=== PATIENT | female | born 1940 | race American Indian/Alaskan Native ===

== ENCOUNTER 2016-09-24 11:04 | Outpatient (CLI) | payer MEDICARE ==
--- NOTE | 2016-09-24 12:59 | Mammography Report ---
BILATERAL MAMMOGRAM: FINDINGS: The breasts are almost entirely fat (<25% glandular). No mass, distortion, suspicious calcification, or skin change is seen. No significant changes compared to prior study in June 2014. CAD was utilized. IMPRESSION: Negative mammogram. There is no mammographic evidence of malignancy. RECOMMENDATION: Follow-up per ACS guidelines. BI-RADS CATEGORY: 1 = Negative ACR BI-RADS MAMMOGRAPHIC CODES: 0 = Needs additional imaging evaluation; 1 = Negative; 2 = Benign; 3 = Probably benign; 4 = Suspicious; 5 = Malignant; 6 = Known biopsy-proven malignancy COMMENT: 1. Dense breast tissue, i.e., adenosis, fibrocystic changes, etc., may obscure an underlying neoplasm. 2. Approximately 10% of cancers are not detected with mammography. 3. A negative mammography report should not delay biopsy if a clinically suspicious mass is present. COMMENT: Patient follow-up letters are generated in [employer].
== END 2016-09-24 11:05 | disposition home or self-care (01) ==
LOC: MAMMO 11:04
PROVIDERS: ATTEND Internal Medicine
DX: Z12.31 Encounter for screening mammogram for malignant neoplasm of breast (principal)
CPT/HCPCS: 77067; G0202

== ENCOUNTER 2018-11-12 16:27 | Emergency (ER) | payer MEDICARE ==
--- NOTE | 2018-11-12 16:37 | Emergency Department Report ---
Blank Doc - Documentation Documentation: This is a 78-year-old female that presents with lower back pain. Denies any t rauma or urinary symptoms. This initial assessment/diagnostic orders/clinical plan/treatment(s) is/are subject to change based on patient's health status, clinical progression and re- assessment by fellow clinical providers in the ED. Further treatment and workup at subsequent clinical providers discretion. Patient/guardians urged not to elope from the ED as their condition may be serious if not clinically assessed and managed. Initial orders include: 1- Patient sent to [facility] for further evaluation and treatment
[2018-11-12] MEDS ORDERED: MORPHINE IM ONE (19:08)
[2018-11-12] MEDS ORDERED: ZOFRAN ODT PO ONE (19:08)
--- NOTE | 2018-11-12 19:31 | Emergency Department Report ---
HPI - General Chief Complaint: Back Pain/Injury Time Seen by Provider: 11/12/18 16:36 - HPI HPI: Room 34 The patient is a 78-year-old female presenting with a chief complaint of low back pain radiating to the left lobectomy. Patient states he's had pain from her lower back radiating to the left lower extremity past her knee for the past 4 days. He states there is no history of trauma or fever. Patient denies any previous episodes of same. Patient states the pain increases with weightbearing or movement. Patient denies abdominal pain. Patient currently gets her pain score of 15/10." Location: [See above] Duration: [See above] Quality: [See above] Severity: [See above] Modifying factors: [see above] Context: [see above] Mode of transportation: [not driving] ED Past Medical Hx - Past Medical History Additional medical history: Hypercholesterolemia - Surgical History Past Surgical History?: No - Family History Family history: no significant - Social History Smoking Status: Former Smoker (none 20 years) Substance Use Type: None - Medications Home Medications: Home Medications Medication Instructions Recorded Confirmed Last Taken Type Cyclobenzaprine [Flexeril] 10 mg PO TID PRN #14 tablet 11/12/18 Unknown Rx HYDROcodone/APAP 5-325 [[place] 1 - 2 each PO Q6HR PRN #20 tablet 11/12/18 Unknown Rx 5/325] Ibuprofen [Motrin 800 MG tab] 800 mg PO Q8HR PRN #20 tablet 11/12/18 Unknown Rx ED Review of Systems ROS: Stated complaint: BACK PAIN Other details as noted in HPI Constitutional: denies: fever Eyes: denies: eye pain ENT: denies: throat pain Respiratory: no symptoms reported Cardiovascular: denies: chest pain Endocrine: no symptoms reported Gastrointestinal: denies: abdominal pain Genitourinary: denies: dysuria Musculoskeletal: back pain Neurological: denies: headache Physical Exam - Physical Exam Vital Signs: Vital Signs 11/12/18 16:35 Temperature 98.3 F Pulse Rate 89 Respiratory 20 Rate Blood Pressure 134/77 O2 Sat by Pulse 98 Oximetry Physical Exam: GENERAL: The patient is well-developed well-nourished female standing in room bent over chair. To be in moderate discomfort HEENT: Normocephalic. Atraumatic. Extraocular motions are intact. Patient has moist mucous membranes. NECK: Supple. Trachea midline CHEST/LUNGS: Clear to auscultation. There is no respiratory distress noted. HEART/CARDIOVASCULAR: Regular. There is no tachycardia. There is no gallop rub or murmur.2+ left DP ABDOMEN: Abdomen is soft, nontender. Patient has normal bowel sounds. There is no abdominal distention. There are no abdominal bruits. No pulsatile abdominal masses palpated SKIN: There is no rash. There is no edema. There is no diaphoresis. NEURO: The patient is awake, alert, and oriented. The patient is cooperative. The patient has no focal neurologic deficits. The patient has normal speech and gait. MUSCULOSKELETAL: There is mild discomfort to palpation at the lower lumbar spine. There is no evidence of acute injury. Positive straight leg raise on the left ED Course Vital Signs 11/12/18 16:35 Temperature 98.3 F Pulse Rate 89 Respiratory 20 Rate Blood Pressure 134/77 O2 Sat by Pulse 98 Oximetry ED Medical Decision Making - Radiology Data Radiology results: report reviewed (lumbar spine x-ray), image reviewed (lumbar spine x-ray) interpreted by me: Lumbar spine x-ray-no acute fracture [facility] [address] [place] [address] XRay Report Signed Patient: HAILEY ELIZABETH MR#: [id number] : 1940 Acct:[id number] Age/Sex: 78 / F ADM Date: 11/12/18 Loc: ED Attending Dr: Ordering Physician: SUSY MCCLOUD MD Date of Service: 11/12/18 Procedure(s): XR spine lumbosacral 2-3V Accession Number(s): [id number] cc: SUSY MCCLOUD MD Fluoro Time In Minutes: LUMBAR SPINE 3 VIEWS INDICATION: MAIN: pain radiating down left lower extremity starting on 11/09/18. COMPARISON: No relevant prior imaging study available. FINDINGS: Lumbar vertebral body height is maintained. There is mild mid to lower lumbar facet and discogenic degenerative change. There is minimal anterolisthesis of L3 on L4, alignment is otherwise unremarkable. 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 No acute fracture is seen. IMPRESSION: 1. No acute findings. Signer Name: Abdullahi Bishop MD Signed: 11/12/2018 7:53 PM Workstation Name: [email or web address] Transcribed By: LUZ Dictated By: Abdullahi Bishop MD Electronically Authenticated By: Abdullahi Bishop MD Signed Date/Time: 11/12/181952 DD/ 52 TD/TT: - Differential Diagnosis lumbar radiculopathy, sciatica Critical care attestation.: If time is entered above; I have spent that time in minutes in the direct care of this critically ill patient, excluding procedure time. ED Disposition Clinical Impression: Sciatica Disposition: DC- TO HOME OR SELFCARE Is pt being admited?: No Does the pt Need Aspirin: No Condition: Stable Instructions: Lumbar Radiculopathy (ED) Additional Instructions: Return to the emergency department immediately should you develop worsening symptoms, fever, inability to tolerate food or liquid or any other concerns. Prescriptions: Cyclobenzaprine [Flexeril] 10 mg PO TID PRN #14 tablet PRN Reason: Muscle Spasm Ibuprofen [Motrin 800 MG tab] 800 mg PO Q8HR PRN #20 tablet PRN Reason: Pain, Moderate (4-6) HYDROcodone/APAP 5-325 [[place] 5/325] 1 - 2 each PO Q6HR PRN #20 tablet PRN Reason: Pain Referrals: NICA PEÑALOZA MD [Primary Care Provider] - 3-5 Days Time of Disposition: 20:02
--- NOTE | 2018-11-12 19:58 | XRay Report ---
LUMBAR SPINE 3 VIEWS INDICATION: MAIN: pain radiating down left lower extremity starting on 11/09/18. COMPARISON: No relevant prior imaging study available. FINDINGS: Lumbar vertebral body height is maintained. There is mild mid to lower lumbar facet and discogenic de generative change. There is minimal anterolisthesis of L3 on L4, alignment is otherwise unremarkable. 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 No acute fracture is seen. IMPRESSION: 1. No acute findings. Signer Name: Abdullahi Bishop MD Signed: 11/12/2018 7:53 PM Workstation Name: [id number]
[2018-11-12 20:39] VITALS: BP 163/81
== END 2018-11-12 20:38 | disposition home or self-care (01) ==
LOC: ED 16:27
DX: M54.42 Lumbago with sciatica, left side (principal); E78.00 Pure hypercholesterolemia, unspecified; Z87.891 Personal history of nicotine dependence; Z79.899 Other long term (current) drug therapy
CPT/HCPCS: 72100; 96372; 99283; J2270; Q0162